=== PATIENT | male | born 1995 | race Caucasian/White ===

== ENCOUNTER 2023-09-01 11:55 | Emergency (ER) | payer SELFPAY ==
[2023-09-01] MEDS ORDERED: Ondansetron PF 4 MG/2 ML Vial ONE (13:04)
[2023-09-01] MEDS ORDERED: Morphine 4 MG/ML VIAL ONE ×2 (13:04→15:22)
[2023-09-01 13:14] LABS: #Eosinphils 0.1 10x3/uL (0.0-0.5); #Monocytes 1.6 10x3/uL (0.0-1.1); #Neutrophils 9.9 10x3/uL (1.5-8.4); %Basophils 0.2 % (0.0-2.0); %Eosinophils 0.9 % (0.0-6.0); %Lymphocytes 12.2 % (18.0-47.0); %Monocytes 12.3 % (0.0-10.0); Hematocrit 42.2 % (38.8-50.0); Hemoglobin 14.6 g/dL (13.5-17.5); Mean Corpuscular HGB CONC 34.6 g/dL (32.0-36.0); Mean Corpuscular Hemoglobin 32.6 pg (27.0-33.0); Mean Corpuscular Volume 94.2 fl (81.2-95.1); Mean Platelet Volume 9.1 fl (7.4-10.4); Platelet Count 258 10x3/uL (150-450); RBC Distribution Width 11.8 % (11.5-14.5); Red Blood Cell (RBC) Count 4.48 10x6/uL (4.32-5.72); White Blood Cell (WBC) Count 13.4 10x3/uL (3.5-10.5)
[2023-09-01 13:27] LABS: ALT (SGPT) 14 U/L (8-55); AST (SGOT) 19 U/L (5-34); Alkaline Phosphatase 59 U/L (40-110); Anion Gap 11 mmol/L (10-20); BUN (Urea Nitrogen) Less than 4 mg/dL (8.9-20.6); Bilirubin, Total 0.8 mg/dL (0.2-1.2); Calc. Creatinine Clearance 0 mL/min (70-130); Calcium 8.8 mg/dL (7.8-10.44); Carbon Dioxide 31 mmol/L (22-29); Chloride 98 mmol/L (98-107); Estimated GFR 127; Globulin 2.8 g/dL (2.4-3.5); Glucose 91 mg/dL (70-105); Potassium 3.8 mmol/L (3.5-5.1); Protein, Total 6.8 g/dL (6.0-8.3); Sodium 136 mmol/L (136-145)
[2023-09-01] MEDS ORDERED: Lidocaine 1% (PF) 30 ML VIAL ONE (14:28)
[2023-09-01] MEDS ORDERED: Clindamycin 150 MG CAP ONE (15:06)
== END 2023-09-01 15:57 | disposition home or self-care (01) ==
LOC: CSHERS 11:55
DX: K04.7 Periapical abscess without sinus (principal)
CPT/HCPCS: 41800; 70487; 80053; 85025; 96374; 96375; 96376; J2001; J2270; J2405